=== PATIENT | female | born 1985 | race Caucasian/White ===

== ENCOUNTER → 2020-04-24 08:21 | Outpatient (CLI) | payer BC, SELFPAY ==
--- NOTE | ~2020-04-24 | MR_ITS ---
EXAMINATION: MR ankle RT wo con DATE: 04/24/2020 09:17 INDICATION: Rupture of the plantar fascial the right foot presenting with pain at the medial/plantar aspect of the hindfoot. TECHNIQUE: Magnetic resonance imaging (MRI) of the right ankle was performed without intravenous cont rast. Sequences included sagittal, coronal, and axial proton-density weighted fast spin echo without and with fat saturation. COMPARISON: None. FINDINGS: Medial ankle ligaments: Deep and superficial deltoid ligaments as well as the spring ligament are normal. Lateral ankle ligaments: The anterior and posterior inferior tibiofibular ligaments are normal. The anterior talofibular, calc aneofibular and posterior talofibular ligaments are normal. Tendons: Achilles tendon is normal. Fusiform thickening of the peroneus longus tendon centered immediately dis gomez to the tip of the lateral malleolus consistent with mild tendinopathy without discrete tear. The peroneus brevis tendon is normal. The tibialis anterior and extensor hallucis longus and extensor dig itorum longus tendons are normal. Small amount of fluid consistent with mild tenosynovitis extending along the normal tibialis posterior tendon. The flexor digitorum longus and flexor hallucis longus te ndons are normal. Plantar fascia: There is prominent thickening and increased signal involving the medial cord of the proximal plantar aponeurosis with increased signal of the aponeurosis and small amount of surrounding edema consistent with moderate enthesopathy/chronic plantar fasciitis. There is a lax, wavy appearance to the deeper fibers of the central cord with thin linear fluid signal extending along the anterior margin of the c alcaneal footplate suggesting a partial-thickness tear. The medial and lateral cords of the plantar a poneurosis remain normal. Bones/other: Bone alignment is normal. Normal marrow signal throughout with no fracture, reactive edema, osteonecr osis or pathologic marrow replacing process. Joint spaces are normal. Fluid: Physiologic amount of fluid in the joint spaces. No bursitis or other abnormal fluid collections. IMPRESSION: 1. Moderate enthesopathy/plantar fasciitis and partial thickness tear at the calcaneal origin of the central cord of the latter aponeurosis. 2. Mild tibialis posterior tenosynovitis with normal-appearing tendon. 2. Mild peroneus longus tendinopathy without tear. Reviewed, dictated and finalized at location B. [employer] IMPRESSION: 1. Moderate enthesopathy/plantar fasciitis and partial thickness tear at the ca lcaneal origin of the central cord of the latter aponeurosis. 2. Mild tibialis posterior tenosynovitis with normal-appearing tendon. 2. Mild peroneus longus tendinopathy without tear.
== END ==
PROVIDERS: Visit Provider Podiatrist Foot & Ankle Surgery
DX: M72.2 Plantar fascial fibromatosis (principal); M76.821 Posterior tibial tendinitis, right leg
CPT/HCPCS: 73721

== ENCOUNTER 2023-04-02 17:04 | Emergency (ER) | payer OTHER, SELFPAY ==
[2023-04-02 17:25] VITALS: BP 138/80; PULSE 92; RESP 18; TEMP 36.8; O2SAT 100
--- NOTE | 2023-04-02 17:33 | ED.EAR ---
HPI - Ear Problem General Chief complaint: Ear Stated complaint: rt earache Source: patient Mode of arrival: ambulatory Limitations: no limitations History of Present Illness HPI Narrative: 37-year-old female presented for complaint of right ear pain, onset this morning. Pain is constant and dull, with occasional sharp shooting pain. She also reports intermittent sinus pressure, congestion, and cough over the past 6 weeks. She has taken a course of steroids with temporary improvement in symptoms. Denies shortness of breath, wheezing, nausea, vomiting, diarrhea, fevers or chills. MD Complaint: ear pain Related Data Home Medications Medication Instructions Recorded Confirmed albuterol sulfate 90 mcg/actuation 90 mcg inhalation DIRECTED 04/02/23 04/02/23 aerosol inhaler amlodipine 10 mg tablet 10 mg DIRECTED 04/02/23 04/02/23 bupropion HCl 300 mg 24 hr tablet, 300 mg PO DIRECTED 04/02/23 04/02/23 extended release Allergies Allergy/AdvReac Type Severity Reaction Status Date / Time Sulfa (Sulfonamide Allergy Intermediate Rash Verified 08/20/10 15:47 Antibiotics) Review of Systems Review of Systems: CONSTITUTIONAL: Denies malaise, chills, or fever. EYES: Denies visual changes, redness, or discharge. ENT: Denies sore throat. Reports ear pain rhinorrhea, congestion, sinus pain CARDIOVASCULAR: Denies chest pain, palpitations, or edema. RESPIRATORY: Denies cough or dyspnea. GASTROINTESTINAL: Denies abdominal pain, nausea, vomiting, diarrhea SKIN: Denies rash or itching. MUSCULOSKELETAL: Denies myalgia. NEUROLOGIC: Denies headache. All systems reviewed & are unremarkable except as noted in HPI and below [facility] Past Medical History Medical History (Updated 04/02/23 @ 17:43 by Alexa Paredes, EDITH) No pertinent past medical history Comments At time of signature, agree with nursing past medical, surgical, social and family history. There is no relevant family history pertinent to the presenting complaint Exam Narrative: GENERAL: mildly ill-appearing, in no acute distress. HEAD: Normocephalic EYES: PERRLA, conjunctivae clear ENT: Nasal congestion. Mucous membranes moist. TMs pearly cosme with dull light reflex bilaterally; no tragal tenderness. Oropharynx not erythematous Tonsils not enlarged and without exudate, no drooling, no hoarseness, no trismus, uvula midline. NECK: Supple. No lymphadenopathy CHEST: Clear to auscultation, breath sounds equal. No wheezing, rhonchi, rales, or stridor. No respiratory distress, speaks in full sentences. HEART: Regular rate and rhythm. No murmur heard. SKIN: Warm, dry, no rash. NEURO: Alert and oriented x3. PSYCH: Normal mood and affect Course Course Emergency Course: Patient is aware of diagnosis, understands and agrees to treatment plan. Anticipatory guidance given. Patient agrees to follow-up as directed and is aware of reasons to seek care at the emergency department. Portions of this record may have been created with voice recognition software Level of Care: Express Care Visit Vital Signs Vital signs: Vital Signs Temperature 98.3 F 04/02/23 17:25 Pulse Rate 92 04/02/23 17:25 Respiratory Rate 18 04/02/23 17:25 Blood Pressure 138/80 04/02/23 17:25 Pulse Oximetry 100 04/02/23 17:25 Oxygen Delivery Room Air 04/02/23 17:25 Temperature 98.3 F 04/02/23 17:25 Pulse Rate 92 04/02/23 17:25 Respiratory Rate 18 04/02/23 17:25 Blood Pressure 138/80 04/02/23 17:25 Pulse Oximetry 100 04/02/23 17:25 Oxygen Delivery Room Air 04/02/23 17:25 Reviewed Medical Decision Making MDM Narrative Medical decision making narrative: Discussed physical exam findings, c/w URI; no apparent AOM. Advised supportive measures and signs/symptoms to go to the ER. Patient is appropriate for outpatient treatment and follow-up. Differential Diagnosis Differential Diagnosis: Coronavirus, strep pharyngitis, allergic rhinitis, upper
== END 2023-04-02 17:43 | disposition home or self-care (01) ==
PROVIDERS: Emergency Provider Nurse Practitioner Family
DX: J06.9 Acute upper respiratory infection, unspecified (principal); Z79.899 Other long term (current) drug therapy
CPT/HCPCS: 99213; G0463